=== PATIENT | female | born 1970 | race Two or more races ===

== ENCOUNTER 2024-08-01 14:49 | Emergency (ER) | payer MEDICAID, SELFPAY ==
[2024-08-01 15:09] VITALS: BP 140/82; PULSE 67; RESP 19; TEMP 37; O2SAT 95
--- NOTE | 2024-08-01 15:26 | EKG_ITS ---
[facility] Test Date: 2024-08-01 Pat Name: ASHISH MORALES Department: Room: - Gender: Female Graduate Nurse: : 1970 Requested By: Star Salinas Order Number: [id number] Reading MD: Star Salinas Measurements Intervals [place] Rate: 59 P: 12 TX: 148 QRS: 14 QRSD: 98 T: 34 QT: 406 QTc: 402 Interpretive Statements SINUS BRADYCARDIA WITH OCCASIONAL VENTRICULAR PREMATURE COMPLEXES POSSIBLE RIGHT VENTRICULAR CONDUCTION DELAY [RSR (QR) IN V1/V2] POSSIBLE ANTERIOR MYOCARDIAL INFARCTION , OF INDETERMINATE AGE [30 ms Q WAVE IN V3/V4, OR R < 0.2 mV IN V4] Compared to ECG 10/26/2023 11:32:33 Myocardial infarct finding now present Sinus rhythm no longer present Incomplete right bundle-branch block no longer present /store/S0/[id number].pdf
--- NOTE | 2024-08-01 15:27 | PD.EDADULT ---
ED General RME/HPI General Chief complaint: General Adult/Misc Complain Stated complaint: HYPOTENSION/ BRADYCARDIA Time Seen by Provider: 08/01/24 15:25 Arrival date/time: 08/01/24 14:49 CC: Generalized weakness HPI patient presents the ER via EMS who state that the patient was initially reported to have undetectable blood pressure and heart rate of 30. However when the patient was hooked up to the monitor the patient had a heart rate in the 70s, the pressure was stable at 110/50. Patient denies chest pain shortness of breath or difficulty breathing. EMS report the patient was at the [facility] for follow-up from a ER visit. Related Data Home Medications ?Medication ?Instructions ?Recorded ?Confirmed No Known Home Medications 01/28/22 01/28/22 Allergies Allergy/AdvReac Type Severity Reaction Status Date / Time No Known Allergies Allergy Verified 08/01/24 16:16 Review of Systems Review of Systems Narrative Review of Systems: GEN: No fever, no chills, no weight loss EYES: No discharge, no visual changes, no pain HEENT: No ear pain, no congestion, no sore throat PULM: No shortness of breath, no cough, no congestion CV: No chest pain, no dyspnea on exertion, no palpitations GI: No nausea, no vomiting, no diarrhea, no pain, no constipation : No frequency, no urgency, no dysuria MUSC/SKEL: No joint pain, no back pain SKIN: No rash PSYCH: No hallucinations, no depression HEME/LYMPH: No easy bleeding or bruising tendencies NEURO: +weakness, no headache Past Medical History Past Medical History NEUROLOGIC: Negative Neurological Disorders or Seizures CARDIAC: Negative Cardiac Disorders or Congestive Heart Failure RESPIRATORY: Negative Chronic Obstructive Pulmonary Disease (COPD) GASTROINTESTINAL: Positive Gastrointestinal Disorders and Gastroesophageal Reflux Disease GENITOURINARY: Negative Genitourinary Disorders or Renal Disease MUSCULOSKELETAL: Negative Musculoskeletal Disorders ENDOCRINE: Negative Endocrine Disorders, Diabetes Mellitus Type 1 or Diabetes Mellitus Type 2 HEMATOLOGIC: Negative Blood Disorders OTHER HISTORY: Positive Chicken Pox and Measles; Negative Autoimmune Disease, Blood Transfusions, Anesthesia Reactions or Cancer Surgical History SURGICAL: Positive Section Social History SMOKING STATUS: Never smoker ED Exam Narrative Physical exam: [General: Morbidly obese not in anyacute distress Head normocephalic HEENT: Within acceptable limits Neck is supple nontender Chest equal chest rise nontender to palpation Respiratory: Clear to auscultation no wheezes crackles or rubs CV: Rate rhythm is regular no murmurs rubs or clicks Abdomen is distended secondary to body habitus soft nontender no masses positive bowel sounds all 4 quadrants Back: No CVA tenderness no spinous process tenderness from cervical spine thoracic and lumbar spine Skin: Intact no petechiae rash induration ulceration or crepitus Extremities: Moving all extremity against resistance cap refill less than 2 seconds neurosensory intact Neuro: Awake alert oriented x3 Glascow coma 15 no focal deficits] Course Quality Measures none Orders Category Date Time Status EKG (ED ONLY) *Do not use* NOW Care 08/01/24 15:26 Completed EKG (ED Only) Stat Exams 08/01/24 15:26 Draft B-Type Natriuretic Peptide Stat Lab 08/01/24 15:46 Completed CBC Stat Lab 08/01/24 15:46 Completed Comprehensive Metabolic Panel Stat Lab 08/01/24 15:46 Completed Drug Screen,Urine Stat Lab 08/01/24 15:26 Ordered LDH (Lactate Dehydrogenase) Stat Lab 08/01/24 15:46 Completed Magnesium Stat Lab 08/01/24 15:46 Completed Partial Thromboplastin Time Stat Lab 08/01/24 15:46 Completed Prothrombin Time with INR Stat Lab 08/01/24 15:46 Completed Troponin I Stat Lab 08/01/24 15:46 Completed Urinalysis Stat Lab 08/01/24 15:26 Ordered Vital Signs Vital signs: Vital Signs Temperature 98.6 F 08/01/24 15:09 Pulse Rate 67 08/01/24 15:09 Respiratory Rate 19 08/01/24 15:09 Blood Pressure 140/82 H 08/01/24 15:09 Pulse Oximetry (%) 95 08/01/24 15:09 Oxygen Delivery Method Room Air 08/01/24 15:09 [facility] Patient data External records reviewed:: [facility] previous records and EMS form Clinical information provided by:: patient and EMS Social determinants that could affect healthcare access:: none Patient has the following chronic illnesses:: Obesity Review the medical record show the patient was seen in October 2023 by me for bigeminy. How is presenting disease/condition affected by chronic disease/condition?: uneffected by Evaluation data The following diagnostics were reviewed and interpreted by me:: lab results and EKG tracing(s) Lab and/or radiology exams considered but not ordered:: CBC shows no acute leukocytosis anemia thrombocytopenia CMP shows no acute electrolyte imbalances renal impairment transaminitis or T. bili elevation Troponin is negative EKG performed at 1553 shows a ventricular to 59 UT interval 148 QRS of 98 QTc of 404, with occasional PVC. Interpretation Summary: There is no acute finding the patient has been borderline bradycardic but mostly maintained a heart rate in the 60s with a stable blood pressure this time no acute finding patient will be discharged home. Medications Medications considered but not ordered:: None Medication administrations:: None Consultations Consultation(s) initiated? (list below): No Diagnosis Differential Diagnosis ED Complaint MDM: ACS OR palpitations Most likely diagnosis given after review of the tests above:: Bradycardia Admission Indicated Admission indicated?: not indicated Explain why admission is indicated or not indicated:: Stable Admission Request Was there a request for admission?: No Disposition Plan Disposition Plan: Discharge Discharge Attestation Discharge Attestation: The patient and all family members were given an opportunity to ask questions and understood the discharge instructions. Discharge instructions specifically effects, indications for sooner follow up or return to the emergency department, and the expected course of current diagnosis. Patient condition: Stable Medical Decision Making Differential Diagnosis Differential Diagnosis: ACS OR palpitations Lab Data 08/01/24 15:46 08/01/24 15:46 Labs: Lab Results 08/01/24 Range/Units 15:46 WBC 5.7 (3.6-11.0) Thou/mm3 RBC 4.40 (4.00-5.20) Miln/mm3 Hgb 13.1 (12.0-16.0) g/dL Hct 39.7 (36.0-46.0) % MCV 90 (80-100) fL MCH 29.8 (25.0-35.0) pg MCHC 33.0 (31.0-37.0) g/dl RDW Std Deviation 42.2 (36.4-46.3) fL Plt Count 139 L (140-440) Thou/mm3 Neut % (Auto) 63 (37-80) % Lymph % (Auto) 27 (10-50) % Mckenzie % (Auto) 8 (0-12) % Eos % (Auto) 2 (0-10) % Baso % (Auto) 1 (0-2.5) % Neut # (Auto) 3.6 (1.8-7.7) Thou/mm3 Lymph # (Auto) 1.5 (1.0-4.8) Thou/mm3 Mckenzie # (Auto) 0.5 (0.0-0.8) Thou/mm3 Eos # (Auto) 0.1 (0.0-0.5) Thou/mm3 Baso # (Auto) 0.0 (0.0-0.2) Thou/mm3 Immature Gran # (Auto) 0.01 H (0.00-0.00) Thou/mm3 Absolute Nucleated RBC 0.00 (0.00-0.00) Thou/mm3 Immature Gran % 0 (0-0) % Nucleated RBC % 0 (0) /100 WBC PT 10.9 (9.0-12.2) Seconds INR 1.0 (0.9-1.3) APTT 25.6 (22.0-36.0) Seconds Sodium 138 (136-145) mMol/L Potassium 4.0 (3.4-5.1) mMol/L Chloride 104 (98-107) mMol/L Carbon Dioxide 30.0 (20.0-31.0) mMol/L Anion Gap 4 L (7-16) BUN 16 (9-23) mg/dL Creatinine 0.8 (0.6-1.3) mg/dL Estim Creat Clear Calc Not Performed. eGFR > 60 (60 - ) See Note BUN/Creatinine Ratio 20 (12-20) Ratio Glucose 147 H (74-106) mg/dL Calculated Osmolality 279 (275-295) Calcium 9.1 (8.3-10.6) mg/dL Corrected Calcium 9.1 (8.5-10.1) mg/dL Magnesium 2.1 (1.6-2.6) mg/dL Total Bilirubin 0.5 (0.3-1.2) mg/dL AST 19 (0-34) U/L ALT 29 (10-49) U/L Alkaline Phosphatase 95 (46-116) U/L Lactate Dehydrogenase 169 (120-246) U/L Troponin I < 0.002 (0.0-0.045) ng/mL B-Natriuretic Peptide 95 (0-100) pg/mL Total Protein 7.0 (5.7-8.2) gm/dL Albumin 4.0 (3.5-5.0) gm/dL Globulin 3.0 (2.3-3.5) gm/dL Albumin/Globulin Ratio 1.3 (1.2-2.2) Discharge Plan Plan Patient Disposition: HOME (Self Care) Patient condition on transfer: Stable Prescriptions/Referrals Prescriptions/Med Rec: No Action No Known Home Medications Referrals: Christian Sweet MD [Primary Care Provider] - In 1 week Problem List Clinical Impression: Dizziness Patient/Caregiver Discharge Instructions Other Activity Instructions:: When you feel lightheaded or dizzy at home take your blood pressure and write it down, if there is a pattern of low blood pressure she needed follow-up with your primary care provider for medication appropriate. Education Materials: ED Dizziness, Uncertain Cause Print Language: [place]an Stand Alone Forms: Clotilde Award Info., Patient Portal Info Letter, Work/School Release PA/OCCUPATIONAL THERAPY PROFESSOR Supervising Physician PA/OCCUPATIONAL THERAPY PROFESSOR Supervising Physician: Star Luis ENP
[2024-08-01 15:55] LABS: Basophils % (Auto) 1 % (0-2.5); Eosinophils # (Auto) 0.1 Thou/mm3 (0.0-0.5); Eosinophils % (Auto) 2 % (0-10); Hematocrit 39.7 % (36.0-46.0); Hemoglobin 13.1 g/dL (12.0-16.0); Immature Granulocytes % (Auto) 0 % (0-0); Immature Granulocytes Auto 0.01 Thou/mm3 (0.00-0.00); Lymphocytes # (Auto) 1.5 Thou/mm3 (1.0-4.8); Lymphocytes % (Auto) 27 % (10-50); Mean Corpuscular Hemoglobin 29.8 pg (25.0-35.0); Mean Corpuscular Volume 90 fL (80-100); Monocytes # (Auto) 0.5 Thou/mm3 (0.0-0.8); Monocytes % (Auto) 8 % (0-12); Neutrophils # (Auto) 3.6 Thou/mm3 (1.8-7.7); Neutrophils % (Auto) 63 % (37-80); Nucleated Red Blood Cell % 0 /100 WBC (0); Platelet Count 139 Thou/mm3 (140-440); RDW Standard Deviation 42.2 fL (36.4-46.3); White Blood Count 5.7 Thou/mm3 (3.6-11.0)
[2024-08-01 16:11] VITALS: PULSE 60; BMI 39.8
[2024-08-01 16:11] LABS: Partial Thromboplastin Time 25.6 Seconds (22.0-36.0); Prothrombin Time 10.9 Seconds (9.0-12.2)
[2024-08-01 16:12] LABS: B-Type Natriuretic Peptide 95 pg/mL (0-100)
[2024-08-01 16:13] LABS: Alanine Aminotransferase 29 U/L (10-49); Albumin/Globulin Ratio 1.3 (1.2-2.2); Alkaline Phosphatase 95 U/L (46-116); Anion Gap 4 (7-16); Aspartate Amino Transferase 19 U/L (0-34); BUN/Creatinine Ratio 20 Ratio (12-20); Bilirubin,Total 0.5 mg/dL (0.3-1.2); Blood Urea Nitrogen 16 mg/dL (9-23); Calcium 9.1 mg/dL (8.3-10.6); Calcium (Corrected) 9.1 mg/dL (8.5-10.1); Chloride 104 mMol/L (98-107); Creatinine (Component) 0.8 mg/dL (0.6-1.3); Glucose 147 mg/dL (74-106); LDH (Lactate Dehydrogenase) 169 U/L (120-246); Magnesium 2.1 mg/dL (1.6-2.6); Osmolality,Calculated 279 (275-295); Sodium 138 mMol/L (136-145); Troponin I < 0.002 ng/mL (0.0-0.045); eGFR > 60 See Note
[2024-08-01 17:03] VITALS: BP 120/69; PULSE 63; RESP 14; O2SAT 99
[2024-08-01 18:23] VITALS: BP 119/71; PULSE 81; RESP 19; TEMP 36.7; O2SAT 96
[2024-08-01 19:41] VITALS: BP 120/80; PULSE 60; RESP 16; O2SAT 98
== END 2024-08-01 19:43 | disposition home or self-care (01) ==
PROVIDERS: Registered Nurse General Practice; Emergency Provider Emergency Medicine; PCP Family Medicine
DX: R42 Dizziness and giddiness (principal); R00.1 Bradycardia, unspecified; I49.3 Ventricular premature depolarization
CPT/HCPCS: 36415; 80053; 80307; 81001; 83615; 83735; 83880; 84484; 85025; 85610; 85730; 93005; 99283